=== PATIENT | male | born 1975 | race Caucasian/White ===

== ENCOUNTER → 2017-01-24 | Outpatient (CLI) | payer MEDICARE | END | disposition home or self-care (01) | LOC: PCVCIMAG 14:51 | PROVIDERS: ATTEND Nuclear Medicine Nuclear Cardiology | DX: E11.621 Type 2 diabetes mellitus with foot ulcer (principal); M79.605 Pain in left leg; M79.604 Pain in right leg; M79.89 Other specified soft tissue disorders | CPT/HCPCS: 93970 ==